=== PATIENT | female | born 1995 | race American Indian/Alaskan Native ===

== ENCOUNTER 2020-06-04 16:26 | Emergency (ER) | payer MEDICAID ==
[2020-06-04 16:35] VITALS: BP 139/76
--- NOTE | 2020-06-04 20:18 | Emergency Department Report ---
ED General Adult HPI - General Chief complaint: Skin Rash Stated complaint: CHEST PAIN/RASH Source: patient Mode of arrival: Ambulatory Limitations: No Limitations - History of Present Illness Initial comments: Patient is a 25-year-old -[place] Island[place] female with no past medical history presents to the ED with complaint of acute onset persistent itchy erythematous maculopapular rashes under the breasts bilaterally for the last 1 week. Patient states that she has been using hydrocortisone cream and it appears that the rashes have been spreading and getting worse. Patient denies fever, chills, nausea, vomiting, chest pain, shortness of breath, abdominal pain, dizziness, syncope, traumatic injury, cough, change in vision or diarrhea. MD Complaint: Diffuse itchy burning painful rash under breasts -: Sudden, week(s) (1) Location: chest Radiation: non-radiation Severity scale (0 -10): 6 Quality: burning, sharp, other (itchy) Consistency: constant Improves with: none Associated Symptoms: denies other symptoms, rash (Erythematous maculopapular dry scaly rashes under the breasts bilaterally). denies: confusion, chest pain, cough, diaphoresis, fever/chills, headaches, loss of appetite, malaise, nausea/vomiting, seizure, shortness of breath, syncope, weakness Treatments Prior to Arrival: none - Related Data Previous Rx's Medication Instructions Recorded Last Taken Type Nystatin Oint [Mycostatin Oint] 1 applicatio TP TID #1 tube 06/04/20 Unknown Rx Terbinafine (Nf) [LamiSIL] 250 mg PO QDAY #14 tablet 06/04/20 Unknown Rx Allergies Allergy/AdvReac Type Severity Reaction Status Date / Time No Known Allergies Allergy Verified 06/04/20 16:50 ED Review of Systems ROS: Stated complaint: CHEST PAIN/RASH Other details as noted in HPI Constitutional: denies: chills, fever Eyes: denies: eye pain, eye discharge, vision change ENT: denies: ear pain, throat pain Respiratory: denies: cough, shortness of breath, wheezing Cardiovascular: denies: chest pain, palpitations Endocrine: no symptoms reported Gastrointestinal: denies: abdominal pain, nausea, diarrhea Genitourinary: denies: urgency, dysuria, discharge Musculoskeletal: denies: back pain, joint swelling, arthralgia Skin: rash (Erythematous maculopapular dry itchy scaly rashes under the breasts bilaterally), change in color, pruritus. denies: lesions, change in hair/nails Neurological: denies: headache, weakness, paresthesias Psychiatric: denies: anxiety, depression Hematological/Lymphatic: denies: easy bleeding, easy bruising ED Past Medical Hx - Past Medical History Previous Medical History?: No - Surgical History Past Surgical History?: No - Social History Smoking Status: Current Every Day Smoker Substance Use Type: Alcohol - Medications Home Medications: Home Medications Medication Instructions Recorded Confirmed Last Taken Type Nystatin Oint [Mycostatin Oint] 1 applicatio TP TID #1 tube 06/04/20 Unknown Rx Terbinafine (Nf) [LamiSIL] 250 mg PO QDAY #14 tablet 06/04/20 Unknown Rx ED Physical Exam - General Limitations: No Limitations General appearance: alert, in no apparent distress - Head Head exam: Present: atraumatic, normocephalic, normal inspection - Eye Eye exam: Present: normal appearance, PERRL, EOMI Pupils: Present: normal accommodation - ENT ENT exam: Present: normal exam, normal orophraynx, mucous membranes moist, TM's normal bilaterally, normal external ear exam - Neck Neck exam: Present: normal inspection, full ROM - Respiratory Respiratory exam: Present: normal lung sounds bilaterally, other (Erythematous maculopapular dry scaly rashes under the breasts bilaterally). Absent: respiratory distress, wheezes, rales, stridor, chest wall tenderness, accessory muscle use, decreased breath sounds, prolonged expiratory - Cardiovascular Cardiovascular Exam: Present: regular rate, normal rhythm, normal heart sounds. Absent: systolic murmur, diastolic murmur, rubs, gallop - GI/Abdominal GI/Abdominal exam: Present: soft, normal bowel sounds. Absent: tenderness, guarding, hyperactive bowel sounds, hypoactive bowel sounds, organomegaly - Extremities Exam Extremities exam: Present: normal inspection, full ROM, normal capillary refill - Back Exam Back exam: Present: normal inspection, full ROM. Absent: tenderness, CVA tenderness (L), muscle spasm, paraspinal tenderness, vertebral tenderness - Neurological Exam Neurological exam: Present: alert, oriented X3, CN II-XII intact, normal gait, reflexes normal - Psychiatric Psychiatric exam: Present: normal affect, normal mood - Skin Skin exam: Present: warm, dry, intact, normal color, rash (Erythematous maculopapular dry scaly rashes under the breasts bilaterally), erythema. Absent: cyanosis, diaphoretic ED Course Vital Signs 06/04/20 16:33 Temperature 98.3 F Pulse Rate 70 Respiratory 18 Rate Blood Pressure 139/76 [Right] O2 Sat by Pulse 98 Oximetry ED Medical Decision Making - Medical Decision Making This is a 25-year-old -[place] female with no past medical history presents to the ED with complaint of acute onset persistent itchy erythematous maculopapular rashes under the breasts bilaterally for the last 1 week. Patient states that she has been using hydrocortisone cream and it appears that the rashes have been spreading and getting worse. In the ED, patient is alert and oriented x3 and is not in distress. Patient was discharged home on medications based on the physical exam findings of tinea corporis. Patient was advised to follow-up with her primary care physician in 12 to 14 days for reevaluation or return to the ED immediately if symptoms get worse. - Differential Diagnosis Tinea corporis; urticaria; impetigo; folliculitis; allergic reaction Critical care attestation.: If time is entered above; I have spent that time in minutes in the direct care of this critically ill patient, excluding procedure time. ED Disposition Clinical Impression: Tinea corporis, Itching with irritation Disposition: DC-01 TO HOME OR SELFCARE Is pt being admited?: No Does the pt Need Aspirin: No Condition: Stable Instructions: Body Ringworm, Pruritus Additional Instructions: Take medication with food, drink plenty of fluids and follow-up with your primary care physician in 7 to 10 days for reevaluation. Return to the ED immediately if symptoms get worse. Avoid alcohol consumption when taking these medications. Prescriptions: Terbinafine (Nf) [LamiSIL] 250 mg PO QDAY #14 tablet Nystatin Oint [Mycostatin Oint] 1 applicatio TP TID #1 tube Referrals: [facility] [Provider Group] - 7-10 days Forms: Work/School Release Form(ED) Time of Disposition: 20:24 Print Language: HEBREW
== END 2020-06-04 20:40 | disposition home or self-care (01) ==
LOC: ED 16:26
DX: B35.4 Tinea corporis (principal)
CPT/HCPCS: 99282

== ENCOUNTER 2020-06-16 13:12 | Emergency (ER) | payer OTHER, MEDICAID ==
[2020-06-16 13:57] VITALS: BP 112/68
--- NOTE | 2020-06-16 14:43 | Emergency Department Report ---
ED General Adult HPI - General Chief complaint: Allergic Reaction Stated complaint: LT FACIAL NUMBNESS Time Seen by Provider: 06/16/20 14:32 Source: patient, EMS Mode of arrival: Ambulatory Limitations: No Limitations - History of Present Illness Initial comments: Patient is a 25-year-old female presents emergency room with complaints of left- sided facial numbness, left-sided facial droop, unable to completely close left eye that began last night. She denies any headache, vision changes, numbness or weakness in the bilateral upper extremity or bilateral lower extremity, issues with speech, issues with ambulation. She has a past medical history of reports. No allergies to medications. - Related Data Previous Rx's Medication Instructions Recorded Last Taken Type Nystatin Oint [Mycostatin Oint] 1 applicatio TP TID #1 tube 06/04/20 Unknown Rx Terbinafine (Nf) [LamiSIL] 250 mg PO QDAY #14 tablet 06/04/20 Unknown Rx Valacyclovir HCl [Valacyclovir] 1,000 mg PO TID 7 Days #21 tablet 06/16/20 Unknown Rx predniSONE [Deltasone] 60 mg PO DAILY 7 Days #21 tablet 06/16/20 Unknown Rx Allergies Allergy/AdvReac Type Severity Reaction Status Date / Time No Known Allergies Allergy Verified 06/04/20 16:50 ED Review of Systems ROS: Stated complaint: LT FACIAL NUMBNESS Other details as noted in HPI Comment: All other systems reviewed and negative ED Past Medical Hx - Past Medical History Previous Medical History?: Yes Additional medical history: ringworm - Surgical History Past Surgical History?: No - Social History Smoking Status: Current Every Day Smoker Substance Use Type: Alcohol, Cocaine, Marijuana - Medications Home Medications: Home Medications Medication Instructions Recorded Confirmed Last Taken Type Nystatin Oint [Mycostatin Oint] 1 applicatio TP TID #1 tube 06/04/20 Unknown Rx Terbinafine (Nf) [LamiSIL] 250 mg PO QDAY #14 tablet 06/04/20 Unknown Rx Valacyclovir HCl [Valacyclovir] 1,000 mg PO TID 7 Days #21 tablet 06/16/20 Unknown Rx predniSONE [Deltasone] 60 mg PO DAILY 7 Days #21 tablet 06/16/20 Unknown Rx ED Physical Exam - General Limitations: No Limitations General appearance: alert, in no apparent distress - Eye Eye exam: Present: PERRL, EOMI. Absent: conjunctival injection, periorbital swelling, periorbital tenderness - ENT ENT exam: Present: mucous membranes moist - Respiratory Respiratory exam: Present: normal lung sounds bilaterally. Absent: respiratory distress, wheezes, rales, rhonchi, stridor, chest wall tenderness, accessory muscle use, decreased breath sounds, prolonged expiratory - Cardiovascular Cardiovascular Exam: Present: regular rate, normal rhythm, normal heart sounds. Absent: systolic murmur, diastolic murmur, rubs, gallop - Neurological Exam Neurological exam: Present: alert, oriented X3, normal gait, other (left sided facial droop, decreased sensation left face, unable to completely close left eyelid, unable to raise left eyebrow, 5/5 muscle strength in the BUE/BLE, sensation intact BUE/BLE, normal finger to nose, normal heel to cummings) - Psychiatric Psychiatric exam: Present: normal affect, normal mood - Skin Skin exam: Present: warm, dry, intact ED Course Vital Signs 06/16/20 13:51 Temperature 98.7 F Pulse Rate 71 Respiratory 16 Rate Blood Pressure 112/68 O2 Sat by Pulse 100 Oximetry ED Medical Decision Making - Medical Decision Making Patient is a 25-year-old female presents emergency room with complaints of left- sided facial numbness, left-sided facial droop, unable to completely close left eye that began last night. She denies any headache, vision changes, numbness or weakness in the bilateral upper extremity or bilateral lower extremity, issues with speech, issues with ambulation. She has a past medical history of reports. No allergies to medications. vitals are normal. on exam: left sided facial droop, decreased sensation left face, unable to completely close left eyelid, unable to raise left eyebrow, 5/5 muscle strength in the BUE/BLE, sensation intact BUE/BLE, normal finger to nose, normal heel to cummings. 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 She has no other focal neuro deficits. She is unable to raise the eyebrows. CVA would likely cause sparing of the forehead and she would be able to raise the eyebrow. Patient given prescription for prednisone and valacyclovir. Advised patient Please take medication as prescribed. Please use artificial tears 4-5 times a day. Follow-up with your primary care doctor. Follow-up with a neurologist. Return to emergency room for any new or worsening symptoms. Critical care attestation.: If time is entered above; I have spent that time in minutes in the direct care of this critically ill patient, excluding procedure time. ED Disposition Clinical Impression: Espino's palsy Disposition: DC-01 TO HOME OR SELFCARE Is pt being admited?: No Does the pt Need Aspirin: No Condition: Stable Instructions: Espino Palsy, Adult Additional Instructions: Please take medication as prescribed. Please use artificial tears 4-5 times a day. Follow-up with your primary care doctor. Follow-up with a neurologist. Return to emergency room for any new or worsening symptoms. Prescriptions: predniSONE [Deltasone] 60 mg PO DAILY 7 Days #21 tablet Valacyclovir HCl [Valacyclovir] 1,000 mg PO TID 7 Days #21 tablet Referrals: LLOYD RIOS MD [Staff Physician] - 2-3 Days [facility] [Provider Group] - 2-3 Days [facility], [LAB/CONTRACT] - 2-3 Days LUIS PENDLETON MD [Referring] - 2-3 Days Time of Disposition: 14:43 Print Language: CROATIAN
== END 2020-06-16 15:10 | disposition home or self-care (01) ==
LOC: ED 13:12
DX: G51.0 Bell's palsy (principal); F17.200 Nicotine dependence, unspecified, uncomplicated; F12.10 Cannabis abuse, uncomplicated; F14.10 Cocaine abuse, uncomplicated
CPT/HCPCS: 99283

== ENCOUNTER 2022-02-05 10:49 | Emergency (ER) | payer MEDICAID, OTHER ==
[2022-02-05 12:48] VITALS: BP 125/66
[2022-02-05] MEDS ORDERED: CYCLOBENZAPRINE 10 MG TAB PO ONE (15:53)
[2022-02-05] MEDS ORDERED: ACETAMINOPHEN W/CODEINE 300-30 MG TAB PO ONE (15:53)
--- NOTE | 2022-02-05 16:00 | Emergency Department Report ---
ED Fall HPI - General Chief Complaint: Shoulder Injury Stated Complaint: BACK PAIN Time Seen by Provider: 02/05/22 15:45 Source: patient Mode of arrival: Ambulatory - History of Present Illness Initial Comments: 26-year-old black female who is G3, P1 at 23 weeks gestation presents to the emergency department for evaluation of falling. She states that she fell at home this morning denies loss of consciousness but presents with pain to lower back and left shoulder. Patient was initially sent to labor and delivery for clearance and was seen and evaluated by an [employer]ER and discharged with a normal ultrasound stating that was okay. She denies abdominal pain, vaginal bleeding, fever, dysuria. She states that pain is 10 out of 10 worse with movement of shoulder, palpation of shoulder or lower back area, and ambulation. MD Complaint: fall -: Sudden, hour(s) Fall From: down stairs (#) When Fall Occurred: 1-3 hours [employer] Fall Witnessed: yes, by family Place Fall Occurred: home Loss of Consciousness: none Prolonged Down Time?: no Symptoms Prior to Fall: none Location: back Location - Extremities: Left: Shoulder Severity: severe Severity scale (0 -10): 10 Quality: aching Context: tripped/slipped Associated Symptoms: denies: headache, neck pain, chest paint, shortness of breath, abdominal pain, unable to walk, lightheaded, vertigo, confusion - Related Data Previous Rx's Medication Instructions Recorded Last Taken Type Nystatin Oint [Mycostatin Oint] 1 applicatio TP TID #1 tube 06/04/20 Unknown Rx Terbinafine (Nf) [LamiSIL] 250 mg PO QDAY #14 tablet 06/04/20 Unknown Rx Valacyclovir HCl [Valacyclovir] 1,000 mg PO TID 7 Days #21 tablet 06/16/20 Unknown Rx predniSONE [Deltasone] 60 mg PO DAILY 7 Days #21 tablet 06/16/20 Unknown Rx Acetaminophen/Codeine [Tylenol 1 tab PO TID PRN #12 tab 02/05/22 Unknown Rx /Codeine # 3 tab] Cyclobenzaprine HCl [Flexeril 5 MG 5 mg PO TID PRN #12 tab 02/05/22 Unknown Rx TAB] Lidocaine [Lidoderm] 1 each TP DAILY PRN #10 patch 02/05/22 Unknown Rx Allergies Allergy/AdvReac Type Severity Reaction Status Date / Time No Known Allergies Allergy Verified 06/04/20 16:50 ED Review of Systems ROS: Stated complaint: BACK PAIN Other details as noted in HPI Comment: All other systems reviewed and negative Constitutional: denies: chills, fever, malaise, weakness Eyes: denies: vision change ENT: denies: congestion Respiratory: denies: shortness of breath, SOB with exertion Cardiovascular: denies: chest pain, palpitations Gastrointestinal: denies: abdominal pain, nausea, vomiting, diarrhea, hematemesis, melena, hematochezia Genitourinary: denies: urgency, dysuria, frequency, hematuria, discharge Musculoskeletal: back pain Neurological: denies: headache, weakness ED Past Medical Hx - Past Medical History Hx Hypertension: No Hx Diabetes: No Hx Deep Vein Thrombosis: No Hx Renal Disease: No Hx Sickle Cell Disease: No Hx Seizures: No Hx Asthma: No Hx HIV: No Additional medical history: ringworm - Surgical History Past Surgical History?: No - Social History Smoking Status: Current Every Day Smoker Substance Use Type: Alcohol, Cocaine, Marijuana - Medications Home Medications: Home Medications Medication Instructions Recorded Confirmed Last Taken Type Nystatin Oint [Mycostatin Oint] 1 applicatio TP TID #1 tube 06/04/20 Unknown Rx Terbinafine (Nf) [LamiSIL] 250 mg PO QDAY #14 tablet 06/04/20 Unknown Rx Valacyclovir HCl [Valacyclovir] 1,000 mg PO TID 7 Days #21 tablet 06/16/20 Unknown Rx predniSONE [Deltasone] 60 mg PO DAILY 7 Days #21 tablet 06/16/20 Unknown Rx Acetaminophen/Codeine [Tylenol 1 tab PO TID PRN #12 tab 02/05/22 Unknown Rx /Codeine # 3 tab] Cyclobenzaprine HCl [Flexeril 5 MG 5 mg PO TID PRN #12 tab 02/05/22 Unknown Rx TAB] Lidocaine [Lidoderm] 1 each TP DAILY PRN #10 patch 02/05/22 Unknown Rx ED Physical Exam - General Limitations: No Limitations General appearance: alert, in no apparent distress - Head Head exam: Present: atraumatic, normocephalic - Eye Eye exam: Present: normal appearance. Absent: scleral icterus, conjunctival injection, periorbital swelling, periorbital tenderness - Neck Neck exam: Present: normal inspection, full ROM. Absent: tenderness, lymphadenopathy - Respiratory Respiratory exam: Present: normal lung sounds bilaterally. Absent: respiratory distress, wheezes, rales, rhonchi, stridor, chest wall tenderness - Cardiovascular Cardiovascular Exam: Present: regular rate, normal heart sounds - GI/Abdominal GI/Abdominal exam: Present: soft, normal bowel sounds. Absent: tenderness - Expanded Upper Extremity Exam Left Shoulder Exam: Present: tenderness. Absent: full ROM, swelling, abrasion, laceration, ecchymosis, deformity, crepidus, dislocation, erythema, tenderness over AC joint Upper Arm exam: Present: normal inspection Elbow exam: Present: normal inspection Vascular: Present: normal capillary refill, radial pulse. Absent: vascular compromise, Pallo - Back Exam Back exam: Present: normal inspection, tenderness (Bilateral lower). Absent: CVA tenderness (R), CVA tenderness (L), paraspinal tenderness, vertebral tenderness - Expanded Back Exam Expanded Back exam: Absent: saddle anesthesia Back exam: Negative Straight Leg Raising: Right, Left - Neurological Exam Neurological exam: Present: alert, oriented X3, normal gait - Psychiatric Psychiatric exam: Present: normal affect, normal mood - Skin Skin exam: Present: warm, dry, intact, normal color ED Course Vital Signs 02/05/22 02/05/22 02/05/22 09:43 09:44 09:47 Temperature 98.1 F Pulse Rate 96 H 93 H Respiratory 20 Rate Blood Pressure 111/68 Blood Pressure [Left] O2 Sat by Pulse 89 Oximetry 02/05/22 02/05/22 02/05/22 09:48 09:53 09:58 Temperature Pulse Rate 93 H 93 H 92 H Respiratory Rate Blood Pressure Blood Pressure [Left] O2 Sat by Pulse 99 99 99 Oximetry 02/05/22 02/05/22 02/05/22 10:03 10:08 10:13 Temperature Pulse Rate 90 89 90 Respiratory Rate Blood Pressure Blood Pressure [Left] O2 Sat by Pulse 99 100 100 Oximetry 02/05/22 02/05/22 02/05/22 10:18 10:23 10:28 Temperature Pulse Rate 91 H 91 H 89 Respiratory Rate Blood Pressure Blood Pressure [Left] O2 Sat by Pulse 100 100 99 Oximetry 02/05/22 12:47 Temperature 98.5 F Pulse Rate 85 Respiratory 18 Rate Blood Pressure Blood Pressure 125/66 [Left] O2 Sat by Pulse 99 Oximetry ED Medical Decision Making - Medical Decision Making 26-year-old black female who is G3, P1 at 23 weeks gestation presents to the emergency department for evaluation of falling. She states that she fell at home this morning denies loss of consciousness but presents with pain to lower back and left shoulder. Patient was initially sent to labor and delivery for clearance and was seen and evaluated by an [employer]ER and discharged with a normal ultrasound stating that was okay. She denies abdominal pain, vaginal bleeding, fever, dysuria. She states that pain is 10 out of 10 worse with movement of shoulder, palpation of shoulder or lower back area, and ambulation. Back and shoulder pain improved. Patient be discharged home with low-dose Tylenol with codeine and Flexeril along with Lidoderm patch to use as pain. She is advised to follow-up with E[employer]ER and return to the ED. She verbalizes understanding of and care. Critical care attestation.: If time is entered above; I have spent that time in minutes in the direct care of this critically ill patient, excluding procedure time. ED Disposition Clinical Impression: Left shoulder pain Fall Qualifiers: Encounter type: initial encounter Qualified Code(s): W19.XXXA - Unspecified fall, initial encounter Lower back pain Qualifiers: Chronicity: acute Back pain laterality: bilateral Sciatica presence: without sciatica Qualified Code(s): M54.50 - Low back pain, unspecified Disposition: 01 HOME / SELF CARE / HOMELESS Is pt being admited?: No Does the pt Need Aspirin: No Condition: Good Instructions: Labor and Information, [id number], Placental Abruption, Musculoskeletal Pain, Shoulder Pain, [id number], Preventing Injuries During , [id number], Acute Back Pain, Adult Additional Instructions: Take medications as prescribed. Follow-up with E[employer]ER for further evaluation a nd management. Return to the emergency department as needed. Prescriptions: Cyclobenzaprine HCl [Flexeril 5 MG TAB] 5 mg PO TID PRN #12 tab PRN Reason: Muscle Spasm Lidocaine [Lidoderm] 1 each TP DAILY PRN #10 patch PRN Reason: Pain, Moderate (4-6) Acetaminophen/Codeine [Tylenol /Codeine # 3 tab] 1 tab PO TID PRN #12 tab PRN Reason: Pain , Severe (7-10) Referrals: YOU CID MD [Primary Care Provider] - 7 Days Time of Disposition: 17:25 Print Language: ARGENTINE
--- NOTE | 2022-02-05 16:31 | Ultrasound Report ---
ULTRASOUND OBSTETRIC LIMITED INDICATION / CLINICAL INFORMATION: abdominal pain. Clinical Gestational Age (GA) in weeks, days: 21, 6 TECHNIQUE: Transabdominal. COMPARISON: None available. FINDINGS: HEART RATE (beats per minute): 152 There is a grade 0 left lateral placenta without evidence of abruption. PRESENTATION: Cephalic. ADDITIONAL FINDINGS: None. IMPRESSION: 1. Grade 0 placenta without evidence of abruption. Signer Name: Maurilio Pierre DO Signed: 02/05/2022 4:21 PM Workstation Name: [id number]
[2022-02-05] MEDS ORDERED: LIDOCAINE 5% 1 EACH PATCH TD SCH (17:00)
== END 2022-02-05 18:00 | disposition home or self-care (01) ==
LOC: ED 10:49 → EDSTATUS 10:52 → ED 18:00
DX: O26.892 Other specified pregnancy related conditions, second trimester (principal); M25.512 Pain in left shoulder; F10.20 Alcohol dependence, uncomplicated; F17.200 Nicotine dependence, unspecified, uncomplicated; F12.90 Cannabis use, unspecified, uncomplicated; Z3A.23 23 weeks gestation of pregnancy; W19.XXXA Unspecified fall, initial encounter; Y93.9 Activity, unspecified; Y92.89 Other specified places as the place of occurrence of the external cause; Y99.8 Other external cause status
CPT/HCPCS: 59025; 76815; 99283

== ENCOUNTER 2022-04-17 10:08 | Inpatient (IN) | payer MEDICAID ==
[2022-04-17 13:26] LABS: Hematocrit 33.4 % (30.3-42.9); Hemoglobin 11.7 gm/dl (10.1-14.3); Mean Corpuscular HGB Conc 35 % (30-34); Mean Corpuscular Volume 92 fl (79-97); Red Blood Count 3.64 M/mm3 (3.65-5.03); Red Cell Distribution Width 14.1 % (13.2-15.2)
[2022-04-17 13:28] LABS: Color,Urine Amber (Yellow)
[2022-04-17 13:32] LABS: Bacteria,Urine 1+ /HPF (Negative); Mucus,Urine 1+ /HPF
[2022-04-17] MEDS ORDERED: ACETAMINOPHEN 500 MG TAB ONE (13:37)
[2022-04-17 13:40] LABS: Alanine Aminotransferase 128 units/L (7-56); Uric Acid 7.5 mg/dL (3.5-7.6)
[2022-04-17 13:46] LABS: Platelet Count 46 K/mm3 (140-440)
[2022-04-17] MEDS ORDERED: ACETAMINOPHEN 500 MG TAB PO NR (14:00)
[2022-04-17 16:16] LABS: Creatinine,Urine < 4.2 mg/dL (0.1-20.0)
[2022-04-17] MEDS ORDERED: LACTATED RINGERS 1,000 ML ONE (17:48)
[2022-04-17] MEDS ORDERED: MAGNESIUM SULFATE 4 GM/100 ML BAG IV ONE (18:00)
[2022-04-17] MEDS ORDERED: MAGNESIUM SULFATE 40GM/1000ML 40 GM/1,000 ML BAG IV SCH (18:00)
[2022-04-17] MEDS ORDERED: hydrALAZINE 20 MG/1 ML INJ IV ONE (18:22)
[2022-04-17] MEDS ORDERED: hydrALAZINE 20 MG/1 ML INJ ONE (18:25)
--- NOTE | 2022-04-17 18:39 | History and Physical Report ---
History of Present Illness Date of examination: 04/17/22 Date of admission: April 17, 2022 Chief complaint: Elevated blood pressures History of present illness: 27-year-old -1-0-1 at 32+0 weeks who presents to labor and delivery triage with a complaint of elevated blood pressures. At the time of presentation the patient had blood pressures ranging in the 170s systolic and the diastolics in the 100s. She also complained of a headache. She denies any previous history of hypertension. The patient has been receiving her care at [facility]. Her course is complicated by history of a intrauterine demise at 28 weeks. [facility] labs were performed that demonstrated findings of elevated liver function tests, proteinuria and thrombocytopenia. Past History Past Medical History: no pertinent history Past Surgical History: no surgical history Social history: single - Obstetrical History Expected Date of Delivery: 06/12/22 Actual Gestation: 32 Week(s) 0 Day(s) : 3 Para: 1 Hx # Term Pregnancies: 1 (IUFD at 28-week) Number of Pregnancies: 1 Spontaneous Abortions: 0 Induced : 0 Number of Living Children: 1 Medications and Allergies Allergies Allergy/AdvReac Type Severity Reaction Status Date / Time No Known Allergies Allergy Verified 06/04/20 16:50 Home Medications Medication Instructions Recorded Confirmed Last Taken Type Nystatin Oint [Mycostatin Oint] 1 applicatio TP TID #1 tube 06/04/20 Unknown Rx Terbinafine (Nf) [LamiSIL] 250 mg PO QDAY #14 tablet 06/04/20 Unknown Rx Valacyclovir HCl [Valacyclovir] 1,000 mg PO TID 7 Days #21 tablet 06/16/20 Unknown Rx predniSONE [Deltasone] 60 mg PO DAILY 7 Days #21 tablet 06/16/20 Unknown Rx Acetaminophen/Codeine [Tylenol 1 tab PO TID PRN #12 tab 02/05/22 Unknown Rx /Codeine # 3 tab] Cyclobenzaprine HCl [Flexeril 5 MG 5 mg PO TID PRN #12 tab 02/05/22 Unknown Rx TAB] Lidocaine [Lidoderm] 1 each TP DAILY PRN #10 patch 02/05/22 Unknown Rx Active Meds: Active Medications Acetaminophen (Acetaminophen 500 Mg Tab) 1,000 mg PO ONCE NR Stop: 04/17/22 23:59 Last Admin: 04/17/22 13:59 Dose: 1,000 mg Magnesium Sulfate (Magnesium Sulfate 40gm/1000ml) 40 gm in 1,000 mls @ 50 mls/h r IV DIRECT JEFERSON Magnesium Sulfate (Magnesium Sulfate 4gm/100ml) 4 gm in 100 mls @ 25 mls/hr IV ONCE ONE Stop: 04/17/22 21:59 Last Admin: 04/17/22 18:11 Dose: 25 mls/hr Lactated Ringer's (Lactated Ringers) 1,000 mls @ 125 mls/hr IV BOLUS ONE Stop: 04/18/22 03:59 Labetalol HCl (Labetalol 100 Mg Tab) 300 mg PO BID JEFERSON Last Admin: 04/17/22 14:31 Dose: 300 mg Review of Systems Ears, nose, mouth and throat: headache - Vital Signs Vital signs: Vital Signs Pulse BP 63 173/108 04/17/22 11:15 04/17/22 11:15 Temp Pulse Resp BP Pulse Ox 97.9 F 82 16 146/84 98 04/17/22 16:30 04/17/22 18:35 04/17/22 16:30 04/17/22 18:35 04/17/22 18:34 - Physical Exam Breasts: Positive: deferred, mass Lungs: Positive: Clear to auscultation Abdomen: Positive: normal appearance Results Result Diagrams: 04/17/22 13:13 04/17/22 13:13 Abnormal lab results 04/17/22 04/17/22 04/17/22 Range/Units 13:13 13:13 13:13 RBC 3.64 L (3.65-5.03) M/mm3 MCHC 35 H (30-34) % Plt Count 46 L (140-440) K/mm3 AST 162 H (5-40) units/L ALT 128 H (7-56) units/L Lactate Dehydrogenase 526 H (91-180) units/L U Epithel Cells (Auto) 16.0 H (0-13.0) /HPF Urine Total Protein (5-11.8) mg/dL 04/17/22 Range/Units 13:13 RBC (3.65-5.03) M/mm3 MCHC (30-34) % Plt Count (140-440) K/mm3 AST (5-40) units/L ALT (7-56) units/L Lactate Dehydrogenase (91-180) units/L U Epithel Cells (Auto) (0-13.0) /HPF Urine Total Protein < 4 L (5-11.8) mg/dL All other labs normal. Assessment and Plan - Patient Problems (1) Severe preeclampsia Current Visit: Yes Status: Acute Plan to address problem: Patient admitted for magnesium sulfate therapy and steroids. Will proceed with delivery via Patient has been counseled for surgery (2) HELLP syndrome Current Visit: Yes Status: Acute
[2022-04-17] MEDS ORDERED: FAMOTIDINE 20 MG/2 ML INJ IV ONE ×2 (19:02→19:15)
[2022-04-17] MEDS ORDERED: BICITRA ORAL LIQD 30ML PO ONE (19:02)
[2022-04-17] MEDS ORDERED: METOCLOPRAMIDE 10 MG/2 ML INJ ONE (19:14)
[2022-04-17] MEDS ORDERED: CARBOPROST TROMETHAMINE 250 MCG/1 ML INJ IM ONE (19:16)
[2022-04-17] MEDS ORDERED: OXYTOCIN DRIP 30,000 MILLIUNITS/500 ML BAG IV ONE (19:16)
[2022-04-17 19:39] LABS: Bilirubin,Direct < 0.2 mg/dL (0-0.2)
[2022-04-17] MEDS ORDERED: METOCLOPRAMIDE 10 MG/2 ML INJ IV NR (20:00)
[2022-04-17] MEDS ORDERED: ceFAZolin/STERILE WATER 2 GM/20 ML SYRINGE IV NR (20:00)
[2022-04-17] MEDS ORDERED: LACTATED RINGERS 1,000 ML IV ONE (20:00)
[2022-04-17] MEDS ORDERED: TERBUTALINE 1 MG/1 ML INJ SUB-Q PRN (20:35)
[2022-04-17] MEDS ORDERED: fentaNYL 100 MCG/2 ML INJ IV PRN (20:35)
[2022-04-17] MEDS ORDERED: CARBOPROST TROMETHAMINE 250 MCG/1 ML INJ IM PRN (20:35)
[2022-04-17] MEDS ORDERED: ACETAMINOPHEN 325 MG TAB PO PRN (20:35)
[2022-04-17] MEDS ORDERED: BUTORPHANOL 2 MG/1 ML INJ IV PRN (20:35)
[2022-04-17] MEDS ORDERED: LACTATED RINGERS 1,000 ML IV SCH (20:45)
[2022-04-17] MEDS ORDERED: BETAMET ACET/BETAMET NA PH 6 MG/ML INJ 5 ML MDV IM SCH (21:00)
[2022-04-17] MEDS ORDERED: OXYTOCIN DRIP 30 UNITS/500 ML BAG IV SCH (21:00)
--- NOTE | 2022-04-17 22:28 | Ultrasound Report ---
ULTRASOUND OBSTETRIC INDICATION / CLINICAL INFORMATION: Pre-eclampsia with severe features. - Clinical Gestational Age (GA) in weeks, days: 33, 0 TECHNIQUE: Transabdominal. COMPARISON: 02/05/2022 FINDINGS: Single intrauterine . Biparietal Diameter = 6.94 cm = 27, 6 weeks, days Head Circumference = 26.7 cm = 29, 0 weeks, days Abdominal Circumference = 22.8 cm = 27, 1 weeks, days Femur Length = 5.5 cm = 29, 0 weeks, days Average Ultrasound Age (AUA) = 28, 2 weeks, days Heart Rate: 130 beats per minute. Estimated Weight in grams (if calculated): 1168 Estimated Weight Growth Percentile (if calculated): Not calculated Position: cephalic. Cervix: closed. Length in cm (if measured): Not measured. Placenta: posterior and free of the os. Amniotic Fluid Volume: normal Amniotic Fluid Index (LARISSA) in cm (if calculated): 10.5. Maternal Adnexa: No significant abnormality. BREATHING MOVEMENT = 2 GROSS BODY MOVEMENT = 2 TONE = 2 QUALITATIVE AMNIOTIC FLUID VOLUME = 2 TOTAL BIOPHYSICAL SCORE = 8/8 UMBILICAL CORD DOPPLER: - S/D Ratio Average: 5.45 - Waveform: Normal. - Resistive Index (RI) Average: 0.81 - Waveform: Normal. - Pulsitivity Index (PI) Average: 42.15 - End diastolic flow: Present IMPRESSION: 1. Single, living intrauterine with estimated sonographic age of 28, 2 weeks, days. This is significantly less than clinical gestational age of 33 weeks consistent with history of intrauterine growth restriction. 2. Umbilical artery Doppler images demonstrate elevated S/D ratio and elevated resistive indices, com patible with history of intrauterine growth restriction/placental insufficiency. End-diastolic flow i s preserved. 3. Total biophysical score of 8/8. Signer Name: Renzo London MD Signed: 04/17/2022 10:23 PM Workstation Name: [email or web address]
[2022-04-17] MEDS ORDERED: SODIUM CHLORIDE 0.9% 500 ML 500 ML IV ONE (23:21)
[2022-04-18] MEDS: miSOPROStol 25 MCG TAB PO SCH ×2 (00:33→04:34)
[2022-04-18] MEDS ORDERED: hydrALAZINE 20 MG/1 ML INJ IV PRN (00:50)
[2022-04-18] MEDS ORDERED: SODIUM CHLORIDE 0.9% 1000 ML 1,000 ML ONE (02:00)
[2022-04-18 02:27] LABS: Basophils % (Auto) 0.3 % (0.0-1.8); Eosinophils % (Auto) 0.1 % (0.0-4.3); Hematocrit 37.1 % (30.3-42.9); Hemoglobin 12.2 gm/dl (10.1-14.3); Lymphocytes # (Auto) 0.9 K/mm3 (1.2-5.4); Lymphocytes % (Auto) 10.3 % (13.4-35.0); Mean Corpuscular HGB Conc 33 % (30-34); Mean Corpuscular Volume 93 fl (79-97); Monocytes # (Auto) 0.2 K/mm3 (0.0-0.8); Monocytes % (Auto) 2.5 % (0.0-7.3); Red Blood Count 3.98 M/mm3 (3.65-5.03); Red Cell Distribution Width 14.7 % (13.2-15.2)
[2022-04-18 02:28] LABS: Platelet Count 57 K/mm3 (140-440)
[2022-04-18 02:30] LABS: INR 0.86 (0.87-1.13)
[2022-04-18 02:31] LABS: Partial Thromboplastin Time 30.2 Sec. (24.2-36.6)
[2022-04-18 02:38] LABS: Creatinine,Urine 40.5 mg/dL (0.1-20.0)
[2022-04-18 02:40] LABS: BUN/Creatinine Ratio 14
[2022-04-18 02:46] LABS: Alanine Aminotransferase 106 units/L (7-56); Albumin 2.6 g/dL (3.9-5); Blood Urea Nitrogen 13 mg/dL (7-17); Calcium 7.8 mg/dL (8.4-10.2); Hemolysis Index 1; Uric Acid 7.5 mg/dL (3.5-7.6)
[2022-04-18 02:57] LABS: Bilirubin,Direct 0.2 mg/dL (0-0.2)
[2022-04-18 03:16] LABS: Smear for Schistocytes Rare
[2022-04-18] MEDS ORDERED: BUTORPHANOL 2 MG/1 ML INJ IV PRN (03:22)
[2022-04-18] MEDS ORDERED: PENICILLIN G POTASSIUM 5 MIL.UNITS in SODIUM CHLORIDE 0.9% 50 ML IV ONE (05:00)
[2022-04-18] MEDS ORDERED: MAGNESIUM SULFATE 2 GM/50 ML BAG IV ONE (05:30)
[2022-04-18] MEDS ORDERED: MAGNESIUM SULFATE 4 GM/100 ML BAG IV ONE (05:30)
[2022-04-18] MEDS ORDERED: MAGNESIUM SULFATE 40GM/1000ML 40 GM/1,000 ML BAG IV SCH (06:00)
--- NOTE | 2022-04-18 08:11 | Event Note ---
Date: 04/18/22 CC: HD #2, Pre-eclampsia w/ severe features, R/O HELLP syndrome HPI: The patient a 27-year-old at 32-1/7 weeks. She was diagnosed with preeclampsia with severe features yesterday as she had blood pressures >160/110, a headache that was relieved with Tylenol, and a formal 24 urine protein collection of 6,111 mg. Progression to HELLP syndrome was suspected as this patient had low platelets and elevated transaminases. However, there was no clear suspicion for hemolysis. Blood pressures were controlled with IV labetalol 20 mg/40 mg/80 mg and oral labetalol 300 mg twice daily. Magnesium was ordered for seizure prophylaxis. Telephone consultation with [facility] was performed. Anesthesia team was consulted. NICU was consulted. Transfusion of 2 units of apheresis platelets was ordered. Repeat preeclampsia labs and HELLP syndrome labs ordered every 12 hours per ACOG recommendation. OBJECTIVE: BP= 144/92 EFM= category 1 TOCO= irregular SVE= 1/50%/-3/medium/posterior. Cook's catheter in place to traction w/ 1 L Lactated Ringers. LABS: Formal 24 hour urine Protein (04/11/2022)= 6,111 mg Urine Protein to Creatinine Ratio (UPCR)= 9.80. There is significant proteinuria. Estimated 24 hour urine protein= 13,403 mg Hgb= 11.7 --> 12.2 PLT= 46 --> 57 Peripheral Smear for Schistocytes= Few --> Rare TBili= 0.20 --> (<0.20) AST= 162 --> 92 AST= 128 --> 106 LDH= 526 --> 420 URIC= 7.5 Cr= 0.8 --> 1.0 INR= 0.86 PTT= 30.2 Fibrinogen= 528 GBS Culture= pending RADIOLOGY: OB Ultrasound Limited= SLIUP. Vertex. Posterior placenta. EFW= 1168 g (<1st %-ile). LARISSA= 10.5 cm. OB Umbilical Artery Dopplers= WNL. BPP= 03/03 IMPRESSION: 1.) 32 weeks 2.) Pre-eclampsia w/ severe features 3.) R/O HELLP syndrome 4.) growth restriction 5.) Encounter for induction of labor PLAN: 1.) care is up-to-date. GBS culture was obtained. Penicillin ordered for intrapartum GBS prophylaxis. 2.) Betamethasone IM x2 was ordered. The patient received her first dose last night at 9 PM. 3.) This patient had blood pressures >160/110, a headache that was relieved with Tylenol, and a formal 24 urine protein collection of 6,111 mg. Hence, this is consistent with the contemporary criteria for the diagnosis of preeclampsia with severe features. 4.) Blood pressures were controlled with IV labetalol 20 mg/40 mg/80 mg and oral labetalol 300 mg twice daily. Magnesium was ordered for seizure prophylaxis. 5.) Progression to HELLP syndrome was suspected as this patient had low platelets and elevated transaminases. However, there was no clear suspicion for hemolysis. 6.) Telephone consultation with [facility] (Dr. Herrera) was performed. He believes this is an atypical presentation of HELLP syndrome, and this patient is not a candidate for expectant management (i.e to wait for delivery after 48 hours post initiation of glucocorticoids). He recommends delivery via delivery and to make sure platelets are administered before surgery or right before and to do coagulation tests to cover all bases and have the anesthesia team weigh in. 7.) NICU was consulted. 8.) Anesthesia team was consulted. They recommend that this patient have serum platelets of at least 75 prior to surgery, and they agree with platelet transfusion. 9.) Transfusion of 2 units of apheresis platelets was ordered. 1 unit of apheresis platelets have already been administered. 10.) Repeat preeclampsia labs and HELLP syndrome labs that are ordered every 12 hours. Transaminases have decreased. Platelets have increased by 11 prior to the 1 unit of apheresis platelets being administered. Coagulation tests (i.e INR and PTT) are normal. 11.) In the interim, I offered the patient induction of labor with oral Cytotec, Cook's catheter, and vaginal Monoket while awaiting for platelet transfusion to complete an attempt for a vaginal delivery because the overall goal was obtained the quickest way to a safe delivery.
[2022-04-18 08:57] LABS: Basophils % (Auto) 0.1 % (0.0-1.8); Eosinophils % (Auto) 0.1 % (0.0-4.3); Hematocrit 35.4 % (30.3-42.9); Hemoglobin 12.2 gm/dl (10.1-14.3); Lymphocytes # (Auto) 1.2 K/mm3 (1.2-5.4); Lymphocytes % (Auto) 10.6 % (13.4-35.0); Mean Corpuscular HGB Conc 34 % (30-34); Mean Corpuscular Volume 92 fl (79-97); Monocytes # (Auto) 0.4 K/mm3 (0.0-0.8); Monocytes % (Auto) 3.6 % (0.0-7.3); Red Blood Count 3.83 M/mm3 (3.65-5.03); Red Cell Distribution Width 14.8 % (13.2-15.2)
[2022-04-18] MEDS ORDERED: PENICILLIN G POTASSIUM 2.5 MIL.UNITS in SODIUM CHLORIDE 0.9% 50 ML IV SCH (09:00)
[2022-04-18 09:01] LABS: Platelet Count 93 K/mm3 (140-440)
--- NOTE | 2022-04-18 09:37 | Event Note ---
Date: 04/18/22 S: Feeling contractions O: Balloon is out, -2, Cat I tracing currently, 2nd bag of platelets are hanging A: 32.1 weeks Severe preclampsia Low platelets P: Dr. Washington notified of pt status Prepare for
[2022-04-18] MEDS ORDERED: miSOPROStol 200 MCG TAB ONE (10:20)
[2022-04-18] MEDS ORDERED: KETOROLAC 30 MG/1 ML INJ IV PRN (11:14)
--- NOTE | 2022-04-18 11:25 | Event Note ---
Date: 04/18/22 In response to concerns re bradycardia and minimal variability, preparations were initiated for a possible delivery. Clinical situation was fully discussed with patient. Patient refused the option of a at any indications. She was reassured her autonomy would always be respected.
--- NOTE | 2022-04-18 11:31 | Procedure Note ---
OB Delivery Note - Delivery Date of Delivery: 04/18/22 Surgeon: MARÍA ELENA BARNETT Estimated blood loss: <100cc - Vaginal Delivery presentation: vertex Delivery position: OA Intrapartum events: bleeding site-undetermine, preeclampsia, extend. bradycardia Delivery induction: other (Rich's cath) Delivery monitor: external FHT, external uterine Route of delivery: Delivery placenta: spontaneous, expressed Delivery cord: 3 umbilical vessels Episiotomy: none Delivery laceration: none Anesthesia: none - Infant A at 1 minute: 8 (2lbs 6oz) at 5 minutes: 9 Infant Gender: Female
[2022-04-18] MEDS ORDERED: PROMETHAZINE 25 MG TAB PO PRN (12:00)
[2022-04-18] MEDS ORDERED: ACETAMINOPHEN 325 MG TAB PO PRN (12:00)
[2022-04-18] MEDS ORDERED: LANOLIN/ZINC/DIMETHICONE (LANSINOH) 7 GM TP PRN (12:00)
[2022-04-18] MEDS ORDERED: PROMETHAZINE 25 MG RECT SUPP PR PRN (12:00)
[2022-04-18] MEDS ORDERED: NIFEdipine XL 60 MG TAB PO SCH (12:00)
[2022-04-18] MEDS ORDERED: WITCH HAZEL/ GLYCERIN PAD TP PRN (12:00)
[2022-04-18] MEDS ORDERED: HYDROcodone/ACETAMINOPHEN 5-325 MG TAB PO PRN (12:00)
[2022-04-18] MEDS ORDERED: ONDANSETRON 4 MG/2 ML INJ IV PRN (12:00)
[2022-04-18] MEDS ORDERED: diphenhydrAMINE 25 MG CAP PO PRN (12:00)
[2022-04-18] MEDS: IBUPROFEN 600 MG TAB PO SCH ×2 (12:11→17:00)
[2022-04-18] MEDS: NIFEdipine XL 30 MG TAB PO SCH (12:19)
[2022-04-18 13:28] LABS: Smear for Schistocytes None Seen
[2022-04-19 00:58] LABS: Hematocrit 36.4 % (30.3-42.9); Hemoglobin 12.1 gm/dl (10.1-14.3); Mean Corpuscular HGB Conc 33 % (30-34); Mean Corpuscular Volume 93 fl (79-97); Platelet Count 153 K/mm3 (140-440); Red Cell Distribution Width 14.5 % (13.2-15.2)
[2022-04-19 01:03] LABS: INR 0.9 (0.87-1.13)
[2022-04-19 01:04] LABS: Partial Thromboplastin Time 26.6 Sec. (24.2-36.6)
[2022-04-19 01:12] LABS: Alanine Aminotransferase 77 units/L (7-56); Albumin 2.8 g/dL (3.9-5); BUN/Creatinine Ratio 18; Blood Urea Nitrogen 16 mg/dL (7-17); Calcium 7.1 mg/dL (8.4-10.2); Hemolysis Index 5
[2022-04-19 01:13] LABS: Bilirubin,Direct < 0.2 mg/dL (0-0.2)
[2022-04-19 01:31] LABS: Uric Acid 7.8 mg/dL (3.5-7.6)
[2022-04-19] MEDS: IBUPROFEN 600 MG TAB PO SCH ×2 (05:50→05:51)
--- NOTE | 2022-04-19 08:21 | Progress Note ---
Assessment and Plan O: Platelets WNL, AST and ALT decreasing A: PPD # 1 - stable P: Plan to move to mother/baby after magnesium discontinued Subjective - Subjective Date of service: 04/19/22 Principal diagnosis: PPD # 1 PTD @ 32 weeks, Preeclampsia Patient reports: appetite normal [place]: in NICU Objective - Vital Signs Latest vital signs: Vital Signs Temp Pulse Resp BP Pulse Ox Pulse Ox 04/19/22 08:12 78 100 04/19/22 08:07 89 98 04/19/22 08:03 85 139/88 04/19/22 08:02 90 97 04/19/22 08:00 98.1 F 18 99 04/19/22 07:57 87 98 04/19/22 07:03 81 135/72 04/19/22 06:27 85 109/59 04/19/22 06:25 98 F 04/19/22 06:03 83 135/66 04/19/22 06:00 100 04/19/22 05:03 85 116/60 04/19/22 04:03 86 112/58 04/19/22 03:03 102 H 136/81 04/19/22 02:03 91 H 124/60 04/19/22 01:05 98.9 F 04/19/22 01:03 93 H 123/57 04/19/22 00:03 83 128/67 04/19/22 00:00 97 04/18/22 23:03 88 125/65 04/18/22 22:34 98 H 96 04/18/22 22:29 98 H 96 04/18/22 22:24 98 H 96 04/18/22 22:19 97 H 96 04/18/22 22:14 95 H 95 04/18/22 22:09 95 H 97 04/18/22 22:04 90 97 04/18/22 22:03 98 H 104/62 04/18/22 21:59 90 95 04/18/22 21:54 91 H 95 04/18/22 21:49 89 95 04/18/22 21:44 87 95 04/18/22 21:43 99 H 93 04/18/22 21:38 89 97 04/18/22 21:33 91 H 96 04/18/22 21:28 90 96 04/18/22 21:23 89 97 04/18/22 21:18 87 97 04/18/22 21:13 91 H 96 04/18/22 21:08 90 96 04/18/22 21:03 90 125/60 96 04/18/22 20:58 90 97 04/18/22 20:53 89 97 04/18/22 20:48 88 97 04/18/22 20:43 88 97 04/18/22 20:38 86 97 04/18/22 20:33 85 97 04/18/22 20:28 84 97 04/18/22 20:23 85 97 04/18/22 20:18 98 H 99 04/18/22 20:13 86 95 04/18/22 20:08 85 96 04/18/22 20:03 89 138/73 96 04/18/22 20:00 100 04/18/22 19:58 89 97 04/18/22 19:53 89 98 04/18/22 19:48 94 H 96 04/18/22 19:43 86 96 04/18/22 19:38 87 96 04/18/22 19:33 87 97 04/18/22 19:30 100 04/18/22 19:28 94 H 98 04/18/22 19:27 83 L 04/18/22 19:23 37 L 83 L 04/18/22 19:18 83 82 L 04/18/22 19:13 60 82 L 04/18/22 19:12 72 91 04/18/22 19:08 86 99 04/18/22 19:07 87 147/84 04/18/22 19:03 96 H 175/102 92 04/18/22 18:57 55 L 86 04/18/22 18:54 97 H 98 04/18/22 18:49 85 98 04/18/22 18:44 92 H 99 04/18/22 18:39 88 96 04/18/22 18:34 87 97 04/18/22 18:29 80 97 04/18/22 18:24 80 97 04/18/22 18:19 91 H 97 04/18/22 18:14 86 98 04/18/22 18:09 82 97 04/18/22 18:04 80 97 04/18/22 18:03 80 139/91 04/18/22 17:59 82 97 04/18/22 17:54 92 H 97 04/18/22 17:49 79 96 04/18/22 17:44 81 97 04/18/22 17:39 85 98 04/18/22 17:34 77 97 04/18/22 17:29 85 98 04/18/22 17:24 87 98 04/18/22 17:19 84 97 04/18/22 17:14 76 95 04/18/22 17:09 74 96 04/18/22 17:04 77 95 04/18/22 17:03 80 142/88 04/18/22 16:59 78 97 04/18/22 16:54 82 98 04/18/22 16:49 81 98 04/18/22 16:44 81 98 04/18/22 16:39 79 99 04/18/22 16:34 78 98 04/18/22 16:30 79 98 04/18/22 16:24 79 98 04/18/22 16:19 78 98 04/18/22 16:14 78 97 04/18/22 16:09 80 98 04/18/22 16:05 76 98 04/18/22 16:03 77 134/86 04/18/22 15:59 79 98 04/18/22 15:55 79 98 04/18/22 15:49 78 98 04/18/22 15:44 79 98 04/18/22 15:39 79 98 04/18/22 15:34 79 98 04/18/22 15:29 79 98 04/18/22 15:24 81 98 04/18/22 15:19 81 98 04/18/22 15:14 82 98 04/18/22 15:10 87 99 04/18/22 15:05 98 F 92 H 18 98 04/18/22 15:03 81 120/72 04/18/22 15:00 80 97 04/18/22 14:55 81 97 04/18/22 14:50 79 98 04/18/22 14:44 81 97 04/18/22 14:39 79 97 04/18/22 14:35 79 97 04/18/22 14:32 76 124/72 04/18/22 14:29 78 98 04/18/22 14:24 78 98 04/18/22 14:20 78 98 04/18/22 14:15 76 98 04/18/22 14:10 78 98 04/18/22 14:05 77 97 04/18/22 14:00 78 98 04/18/22 13:54 77 97 04/18/22 13:49 76 98 04/18/22 13:45 77 98 04/18/22 13:40 81 97 04/18/22 13:35 79 96 04/18/22 13:29 80 96 04/18/22 13:25 89 96 04/18/22 13:21 85 159/98 04/18/22 13:20 92 H 97 04/18/22 13:14 79 98 04/18/22 13:09 80 97 04/18/22 13:06 83 148/98 94 04/18/22 13:05 77 98 04/18/22 13:00 79 97 04/18/22 12:55 75 97 04/18/22 12:51 75 147/98 04/18/22 12:50 80 97 04/18/22 12:45 77 97 04/18/22 12:40 77 97 04/18/22 12:36 81 156/101 04/18/22 12:35 80 98 04/18/22 12:30 79 97 04/18/22 12:25 80 97 04/18/22 12:20 83 97 04/18/22 12:15 86 98 04/18/22 12:10 74 97 04/18/22 12:07 73 164/99 04/18/22 12:05 72 97 04/18/22 12:00 76 97 04/18/22 11:55 74 97 04/18/22 11:52 76 156/89 04/18/22 11:50 77 96 04/18/22 11:45 94 H 96 04/18/22 11:40 76 98 04/18/22 11:37 74 159/92 04/18/22 11:35 80 97 04/18/22 11:30 78 98 04/18/22 11:25 79 97 04/18/22 11:24 76 169/113 04/18/22 11:22 80 180/113 04/18/22 11:20 87 98 04/18/22 11:15 84 95 04/18/22 11:10 74 96 04/18/22 11:07 72 142/98 04/18/22 11:05 78 97 04/18/22 11:00 77 98 04/18/22 10:55 71 97 04/18/22 10:52 75 144/94 04/18/22 10:51 97.5 F L 71 18 98 04/18/22 10:50 76 99 04/18/22 10:45 86 99 04/18/22 10:40 78 99 04/18/22 10:37 78 156/95 04/18/22 10:35 81 98 04/18/22 10:30 69 99 04/18/22 10:25 84 99 04/18/22 10:20 79 100 04/18/22 10:15 81 100 04/18/22 10:10 76 100 04/18/22 10:07 76 147/85 04/18/22 10:05 83 100 04/18/22 10:00 75 100 04/18/22 09:54 73 100 04/18/22 09:52 76 180/101 04/18/22 09:50 76 100 04/18/22 09:45 77 100 04/18/22 09:40 77 98 04/18/22 09:37 74 141/84 04/18/22 09:35 79 99 04/18/22 09:30 80 99 04/18/22 09:25 75 98 04/18/22 09:24 75 130/77 04/18/22 09:20 70 99 04/18/22 09:15 82 97 04/18/22 09:10 68 98 04/18/22 09:07 72 178/108 04/18/22 09:05 71 99 04/18/22 09:00 63 98 04/18/22 08:55 70 98 04/18/22 08:50 63 98 04/18/22 08:45 68 98 04/18/22 08:40 63 98 04/18/22 08:35 70 98 04/18/22 08:30 65 98 04/18/22 08:25 65 98 04/18/22 08:20 72 97 Intake and Output 04/18/22 04/19/22 04/19/22 22:59 06:59 14:59 Intake Total 1200 Output Total 700 900 Balance -700 1200 -900 Intake: Oral 1200 Output: Urine 700 900 Indwelling Catheter 700 900 Other: Total, Intake Amount 1200 Total, Output Amount 700 900 - Exam Breasts: Present: deferred Cardiovascular: Present: Regular rate Lungs: Present: Clear to auscultation Abdomen: Present: soft Vulva: both: normal Uterus: Present: fundal height below umbilicus Extremities: Present: normal Deep Tendon Reflex Grade: Normal +2 - Labs Labs: Abnormal lab results 04/18/22 04/19/22 04/19/22 Range/Units Unknown 00:23 00:23 WBC 11.8 H 20.7 H (4.5-11.0) K/mm3 Plt Count 93 L (140-440) K/mm3 Lymph % (Auto) 10.6 L (13.4-35.0) % Seg Neutrophils % 85.6 H (40.0-70.0) % Seg Neutrophils # 10.1 H (1.8-7.7) K/mm3 Sodium 132 L (137-145) mmol/L Carbon Dioxide 16 L (22-30) mmol/L Glucose 105 H (65-100) mg/dL Uric Acid 7.8 H (3.5-7.6) mg/dL Calcium 7.1 L (8.4-10.2) mg/dL Magnesium 5.60 H (1.7-2.3) mg/dL AST 45 H (5-40) units/L ALT 77 H (7-56) units/L Alkaline Phosphatase 190 H (35-129) units/L Lactate Dehydrogenase 472 H (91-180) units/L Total Protein 5.1 L (6.3-8.2) g/dL Albumin 2.8 L (3.9-5) g/dL
[2022-04-19] MEDS: NIFEdipine XL 30 MG TAB PO SCH (09:28)
[2022-04-19] MEDS: PRENATAL VIT27-FE FUMARATE-FOLIC ACID VIT TAB PO SCH (09:29)
[2022-04-20 08:13] LABS: Alanine Aminotransferase 108 units/L (7-56); Albumin 2.7 g/dL (3.9-5); Blood Urea Nitrogen 13 mg/dL (7-17); Calcium 7.1 mg/dL (8.4-10.2); Hemolysis Index 0
[2022-04-20 08:14] LABS: BUN/Creatinine Ratio 19
[2022-04-20 08:23] LABS: Basophils % (Auto) 0.2 % (0.0-1.8); Eosinophils % (Auto) 0.3 % (0.0-4.3); Hematocrit 34.8 % (30.3-42.9); Hemoglobin 11.5 gm/dl (10.1-14.3); Mean Corpuscular HGB Conc 33 % (30-34); Mean Corpuscular Volume 94 fl (79-97); Monocytes # (Auto) 1.1 K/mm3 (0.0-0.8); Monocytes % (Auto) 11.3 % (0.0-7.3); Platelet Count 128 K/mm3 (140-440); Red Cell Distribution Width 14.5 % (13.2-15.2)
[2022-04-20] MEDS: NIFEdipine XL 30 MG TAB PO SCH (11:58)
[2022-04-20] MEDS: PRENATAL VIT27-FE FUMARATE-FOLIC ACID VIT TAB PO SCH (11:58)
--- NOTE | 2022-04-20 13:13 | Progress Note ---
Assessment and Plan A: PP Day #2 Severe Preeclampsia Elevated LFTs (AST 45 to 89; ALT: 77 to 108) P: Follow Routine Orders Continue Procardia 60mg XL qd Dr. Washington consulted due to elevated LFTs: Recommends Consult to Hospitalist Dr. Paula Aparicio; Hospitalist Consulted Subjective - Subjective Date of service: 04/20/22 Principal diagnosis: PPD # 1 PTD @ 32 weeks, Preeclampsia Patient reports: appetite normal, voiding normally, pain well controlled, flatus, ambulating normally, other (Denies HAs, dizziness, visual changes, N&V, and epigastic pain. Patient states she feels well and is requesting discharge home) [place]: in NICU, bottle feeding Objective - Vital Signs Latest vital signs: Vital Signs Temp Pulse Resp BP Pulse Ox Pulse Ox 04/20/22 09:26 78 135/85 04/20/22 08:26 73 123/79 04/20/22 08:06 98.1 F 18 99 99 04/20/22 08:03 83 130/85 04/20/22 04:48 68 125/78 04/19/22 20:51 97.7 F 16 100 04/19/22 19:26 82 122/73 04/19/22 18:26 86 109/64 04/19/22 18:08 90 127/66 04/19/22 16:32 77 138/63 04/19/22 16:30 98.2 F 18 04/19/22 15:26 67 131/75 04/19/22 14:25 71 133/70 Intake and Output 04/19/22 04/20/22 04/20/22 22:59 06:59 14:59 Other: # Voids Void 3 - Exam Breasts: Present: normal Cardiovascular: Present: Regular rate Lungs: Present: Clear to auscultation, Normal air movement Abdomen: Present: normal appearance, soft, normal bowel sounds Uterus: Present: normal, firm, fundal height below umbilicus Extremities: Present: normal - Labs Labs: Abnormal lab results 04/20/22 04/20/22 Range/Units 07:30 07:30 Plt Count 128 L (140-440) K/mm3 [place] % (Auto) 11.3 H (0.0-7.3) % [place] # (Auto) 1.1 H (0.0-0.8) K/mm3 Sodium 136 L (137-145) mmol/L Chloride 107.5 H (98-107) mmol/L Carbon Dioxide 21 L (22-30) mmol/L Calcium 7.1 L (8.4-10.2) mg/dL AST 89 H (5-40) units/L ALT 108 H (7-56) units/L Alkaline Phosphatase 148 H (35-129) units/L Total Protein 4.6 L (6.3-8.2) g/dL Albumin 2.7 L (3.9-5) g/dL
[2022-04-20 13:39] LABS: Hepatitis B Surface Antigen Non-Reactive (Negative); Hepatitis C Virus Antibody Non-Reactive (NonReactive)
--- NOTE | 2022-04-20 14:12 | Consultation ---
History of Present Illness - Reason for Consult Consult date: 04/20/22 Past History Social history: single Medications and Allergies Allergies Allergy/AdvReac Type Severity Reaction Status Date / Time No Known Allergies Allergy Verified 06/04/20 16:50 Home Medications Medication Instructions Recorded Confirmed Last Taken Type Nystatin Oint [Mycostatin Oint] 1 applicatio TP TID #1 tube 06/04/20 Unknown Rx Terbinafine (Nf) [LamiSIL] 250 mg PO QDAY #14 tablet 06/04/20 Unknown Rx Valacyclovir HCl [Valacyclovir] 1,000 mg PO TID 7 Days #21 tablet 06/16/20 Unknown Rx predniSONE [Deltasone] 60 mg PO DAILY 7 Days #21 tablet 06/16/20 Unknown Rx Acetaminophen/Codeine [Tylenol 1 tab PO TID PRN #12 tab 02/05/22 Unknown Rx /Codeine # 3 tab] Cyclobenzaprine HCl [Flexeril 5 MG 5 mg PO TID PRN #12 tab 02/05/22 Unknown Rx TAB] Lidocaine [Lidoderm] 1 each TP DAILY PRN #10 patch 02/05/22 Unknown Rx Active Meds: Active Medications Acetaminophen (Acetaminophen 325 Mg Tab) 650 mg PO Q4H PRN PRN Reason: Pain MILD(1-3)/Fever >100.5/LADD Hydrocodone Bitart/Acetaminophen (Hydrocodone/Acetaminophen 5-325 Mg Tab) 2 each PO Q6H PRN PRN Reason: Pain, Moderate (4-6) Bisacodyl (Bisacodyl 10 Mg Rect Supp) 10 mg ND BID PRN PRN Reason: Constipation Diphenhydramine HCl (Diphenhydramine 25 Mg Cap) 25 mg PO Q6H PRN PRN Reason: Itching Lactated Ringer's (Lactated Ringers) 1,000 mls @ 125 mls/hr IV DIRECT JEFERSON Last Admin: 04/17/22 23:52 Dose: 125 mls/hr Magnesium Sulfate (Magnesium Sulfate 40gm/1000ml) 40 gm in 1,000 mls @ 50 mls/hr IV DIRECT JEFERSON Last Admin: 04/18/22 07:35 Dose: 2 gm/hr, 50 mls/hr Ketorolac Tromethamine (Ketorolac 30 Mg/1 Ml Inj) 30 mg IV Q6H PRN PRN Reason: Pain, Moderate (4-6) Stop: 04/23/22 11:13 Multi-Ingredient Ointment (Lanolin/Zinc/Dimethicone (Lansinoh) 7 Gm) 1 applic TP PRN PRN PRN Reason: Sore Nipples Multivitamins/Iron/Calcium ( Sfa47-Om Fumarate-Folic Acid Vit Tab) 1 each PO QDAY [facility] Last Admin: 04/20/22 11:58 Dose: 1 each Nifedipine (Nifedipine Xl 30 Mg Tab) 60 mg PO QDAY [facility] Last Admin: 04/20/22 11:58 Dose: 60 mg Ondansetron HCl (Ondansetron 4 Mg/2 Ml Inj) 4 mg IV Q8H PRN PRN Reason: Nausea And Vomiting Promethazine HCl (Promethazine 25 Mg Rect Supp) 25 mg ND Q6H PRN PRN Reason: Nausea And Vomiting Promethazine HCl (Promethazine 25 Mg Tab) 25 mg PO Q6H PRN PRN Reason: Nausea And Vomiting Sodium Chloride (Sodium Chloride 0.9% 10 Ml Flush Syringe) 10 ml IV PRN NR Stop: 04/23/22 11:59 Witch Diane/Glycerin (Witch Diane/ Glycerin Pad) 1 each TP PRN PRN PRN Reason: Hemorrhoid/cleansing/soothing Exam - Constitutional Vitals: Temp Pulse Resp BP Pulse Ox 98.1 F 78 18 135/85 99 04/20/22 08:06 04/20/22 09:26 04/20/22 08:06 04/20/22 09:26 04/20/22 08:06 Results - Labs CBC & Chem 7: 04/20/22 07:30 04/20/22 07:30 Labs: Abnormal lab results 04/20/22 04/20/22 Range/Units 07:30 07:30 Plt Count 128 L (140-440) K/mm3 [place] % (Auto) 11.3 H (0.0-7.3) % [place] # (Auto) 1.1 H (0.0-0.8) K/mm3 Sodium 136 L (137-145) mmol/L Chloride 107.5 H (98-107) mmol/L Carbon Dioxide 21 L (22-30) mmol/L Calcium 7.1 L (8.4-10.2) mg/dL AST 89 H (5-40) units/L ALT 108 H (7-56) units/L Alkaline Phosphatase 148 H (35-129) units/L Total Protein 4.6 L (6.3-8.2) g/dL Albumin 2.7 L (3.9-5) g/dL Assessment and Plan - Patient Problems (1) Transaminitis Current Visit: Yes Status: Acute (2) Discharge planning issues Current Visit: Yes Status: Acute Plan to address problem: Stable for discharge
[2022-04-20 14:56] VITALS: BP 139/76
--- NOTE | 2022-04-20 16:29 | Event Note ---
Date: 04/20/22 (9211) Dr. Washington and Dr. Aparicio are okay with discharge home. Procardia 60mg XL: 1 tab PO qd. Dis: 30; 1 refill (Called in to [facility]: [phone]) Patient advised to make one week follow -up appt in office
--- NOTE | 2022-04-20 16:30 | Discharge Summary ---
Providers - Providers Date of Admission: 04/17/22 20:35 Date of discharge: 04/20/22 Attending physician: TATA LUCAS MD 04/20/22 12:58 Consult to Physician [CONS] Urgent Comment: Consulting Provider: JACI BALCKWELL Physician Instructions: Reason For Exam: preeclampsia; elevated AST/ALT Primary care physician: TATA LUCAS MD Hospitalization Reason for admission: observation Delivery: Episiotomy: none Laceration: none Other procedures: none complications: none Discharge diagnosis: delivery [place] baby: female Condition at discharge: Good Disposition: 01 HOME / SELF CARE / HOMELESS Plan - Provider Discharge Summary Activity: routine, no sex for 6 weeks, no heavy lifting 4 weeks, no strenuous exercise Diet: routine Instructions: routine Additional instructions: [] Smoking cessation referral if applicable(refer to patient education folder for contact #) [] Refer to [facility] Booklet Call your doctor immediately for: * Fever > 100.5 * Heavy vaginal bleeding ( >1 pad per hour) * Severe persistent headache * Shortness of breath * Reddened, hot, painful area to leg or breast * Drainage or odor from incision. * Keep incision clean and dry at all times and follow doctor's instructions regarding bathing/showering - Follow up plan Follow up: TATA LUCAS MD [Primary Care Provider] - 7 Days Forms: [facility] Discharge Summary
== END 2022-04-20 15:45 | disposition home or self-care (01) | DRG 775 ==
LOC: TRG 10:08 → APU 10:16 → LD 15:27 → TRG 20:35
PROVIDERS: ADMIT Obstetrics & Gynecology Gynecology; ATTEND Obstetrics & Gynecology Gynecology
PROC: 10E0XZZ Delivery of Products of Conception, External Approach (ICD-10-PCS; principal; 2022-04-18)
PROC: 30233R1 Transfusion of Nonautologous Platelets into Peripheral Vein, Percutaneous Approach (ICD-10-PCS; 2022-04-18)
DX: O14.14 Severe pre-eclampsia complicating childbirth (principal); Z37.0 Single live birth; Z20.822 Contact with and (suspected) exposure to COVID-19; Z3A.32 32 weeks gestation of pregnancy; O36.5930 Maternal care for other known or suspected poor fetal growth, third trimester, not applicable or unspecified; O76 Abnormality in fetal heart rate and rhythm complicating labor and delivery; O60.14X0 Preterm labor third trimester with preterm delivery third trimester, not applicable or unspecified
CPT/HCPCS: 36415; 36430; 59200; 76816; 76819; 76820; 80053; 80074; 81001; 82247; 82248; 82565; 82570; 83010; 83615; 83735; 84156; 84450; 84460; 84550; 85025; 85027; 85384; 85610; 85730; 86850; 86900; 86901; 87116; G0378; J3490; J0360; J0595; J0702; J2540; J2590; J2765; J3010; J3475; J7120; P9035; U0003